=== PATIENT | male | born 1990 | race African-American/Black ===

== ENCOUNTER 2016-12-19 11:52 | Emergency (ER) | payer OTHER, SELFPAY ==
[~2016-12-19] VITALS: Ht 170.2 cm; Wt 81.6 kg
[~2016-12-19 11:52] MED LIST: NKM; ZANTAC150 MG PO
[2016-12-19] MEDS ORDERED: Mylanta II UD 30ml ORAL ONE (12:15)
[2016-12-19] MEDS ORDERED: Dicyclomine HCl 10mg/5ml oral soln ORAL ONE (12:15)
[2016-12-19] MEDS ORDERED: Lidocaine 2% Visc 15ml soln ORAL ONE (12:15)
--- NOTE | 2016-12-19 12:36 | Emergency Room Report ---
History of Present Illness General Chief Complaint: General Complaint Source: Patient Present Illness HPI The patient is a 26-year-old male with a history of GERD presenting for GERD exacerbation. The patient states that he has never been on any long-term therapy for this. He states that the symptoms usually present after eating spicy or fatty foods. The patient states that he has felt a burning sensation in the mid upper abdomen which radiates to the mid chest and then experiences burping. Pain is described as a 7/10 burning. He tried Mylanta yesterday which did slightly help. He also admits to diarrhea which began 4 days ago and has now resolved. He denies any other symptoms including vomiting, fever, chills, rash, flank pain, fatigue, melena, hematochezia, hematemesis Allergies: Coded Allergies: No Known Allergies (Unverified , 11/28/12) Patient History Past Medical History: see triage record Pertinent Family History: none Reviewed Nursing Documentation: PMH: Agreed, PSxH: Agreed Nursing Documentation-PMH Past Medical History: No Stated History Review of Systems All Other Systems: negative except mentioned in HPI Physical Exam Vital Signs Date Time Temp Pulse Resp B/P Pulse Ox O2 Delivery O2 Flow Rate FiO2 12/19/16 11:59 97.9 53 16 124/74 97 Room Air Sp02 EP Interpretation: reviewed, normal General Appearance: no apparent distress, alert, GCS 15, non-toxic Head: normocephalic, atraumatic Eyes: bilateral eye PERRL, bilateral eye normal inspection ENT: hearing grossly normal, normal pharynx, no angioedema, normal voice Neck: full range of motion, supple/symm/no masses Respiratory: chest non-tender, lungs clear, normal breath sounds, speaking full sentences Cardiovascular #1: regular rate, rhythm, no edema Gastrointestinal: normal bowel sounds, soft, non-distended, no guarding, no rebound, tenderness - epigastric Genitourinary: normal inspection, no CVA tenderness Musculoskeletal: back normal, gait/station normal, normal range of motion, non- tender Neurologic: alert, oriented x3, responsive, motor strength/tone normal, sensory intact, speech normal Psychiatric: judgement/insight normal, memory normal, mood/affect normal, no suicidal/homicidal ideation Skin: normal color, no rash, warm/dry, well hydrated Lymphatic: no adenopathy Medical Decision Making PA Attestation Dr. Moody is my supervising physician. Patient management was discussed with my supervising physician Diagnostic Impression: Primary Impression: GERD (gastroesophageal reflux disease) Qualified Codes: K21.9 - Gastro-esophageal reflux disease without esophagitis ER Course The patient is a 26-year-old male with a history of GERD presenting for GERD exacerbation Differential diagnoses considered but not limited to: GERD, gastritis, gastric ulcer, gastroenteritis Physical exam: Vitals within normal limits. No apparent distress RRR. Lungs are clear to auscultation bilaterally Abdomen is soft. Normal bowel sounds. Nondistended. There is tenderness to palpation over epigastric region only The patient is given a GI cocktail and feels better. He will be VA'ed home with prescription for pepcid and omeprazole. He needs to FU with PMD. Last Vital Signs Date Time Temp Pulse Resp B/P Pulse Ox O2 Delivery O2 Flow Rate FiO2 12/19/16 11:59 97.9 53 16 124/74 97 Room Air Status: improved Disposition: HOME, SELF-CARE Condition: Improved Scripts Omeprazole (OMEPRAZOLE) 20 Mg Capsule.dr 20 MG ORAL DAILY, #30 CAP Prov: RORY DOUGLAS P.AVianney 12/19/16 Famotidine (PEPCID) 20 Mg Tablet 20 MG ORAL DAILY, #7 TAB 0 Refills Prov: RORY DOUGLAS 12/19/16 RORY DOUGLAS Dec 19, 2016 12:36
[2016-12-19] MEDS ORDERED: OMEPRAZOLE20 M2 ORAL (12:48)
[2016-12-19] MEDS ORDERED: PEPCID20 MG ORAL (12:48)
[2016-12-19 13:25] VITALS: BP 118/80
== END 2016-12-19 13:28 | disposition home or self-care (01) ==
LOC: EMR 13:20
DX: K21.9 Gastro-esophageal reflux disease without esophagitis (principal)
CPT/HCPCS: 99284